=== PATIENT | male | born 1955 | race Caucasian/White ===

== ENCOUNTER → 2018-10-12 | Outpatient (CLI) | payer OTHER ==
--- NOTE | 2018-10-12 16:28 | KCIC ---
3 view right knee COMPARISON: None HISTORY: Knee pain FINDINGS: Prominent joint space narrowing of the medial compartment. Advanced patellofemoral arthropathy. There appears to be a small joint effusion. No acute fracture or dislocation. IMPRESSION: Right knee arthropathy with no acute fracture or dislocation. Probable small joint effusion Electronically signed by: Tyshawn Roger MD (10/12/2018 4:25 PM) [facility] [place]
== END | disposition home or self-care (01) ==
LOC: KCIC 08:55
PROVIDERS: ATTEND Nurse Practitioner Family
DX: M12.861 Other specific arthropathies, not elsewhere classified, right knee (principal)
CPT/HCPCS: 73562

== ENCOUNTER → 2019-03-11 | Outpatient (CLI) | payer OTHER ==
--- NOTE | 2019-03-11 17:49 | KCIC ---
CT ABDOMEN PELVIS WO CONTRAST Indication: Right groin pain. Right lower quadrant pain. Feels a lump. Exposure: One or more of the following individualized dose reduction techniques were utilized for this examination: 1. Automated exposure control 2. Adjustment of the mA and/or kV according to patient size 3. Use of iterative reconstruction technique. Comparison: None are available. Technique: No intravenous contrast given. Oral contrast was given. Findings: Evaluation of solid viscera, bowel and vasculature is compromised by the noncontrast technique. Lung bases are clear. Liver and spleen appear unremarkable. Pancreas appears unremarkable. No evidence of adrenal mass. Numerous tiny nonobstructive calculi identified in both kidneys. No evidence of hydronephrosis. No calcified gallstone. Aorta is nonaneurysmal, with mild calcifications. No significant lymph node enlargement. Small hiatal hernia. Apparent mild wall thickening may be due to lack of distention. No significant small bowel distention. Colonic diverticulosis without evidence of acute colitis. [id number] retained stool in the colon. A structure which probably represents normal appendix is seen in the right lower quadrant. No inflammatory type changes or fluid is seen in the expected appendiceal location or right lower quadrant. Density along the wall of the cecum and ascending colon is probably due to stool, oral contrast has not reached the colon at the time the scan. Urinary bladder appears unremarkable. No evidence of pelvic mass. Degenerative spondylosis. Mild right convexity lumbar scoliosis. Fat-containing inguinal hernias bilaterally, left greater than right. IMPRESSION: 1. Multiple tiny nonobstructive renal calculi bilaterally. 2. Density along the wall of the cecum and ascending colon is probably due to peripheral stool. Colonoscopy could be of benefit if not recently performed, in the unlikely event of a cecal or colonic mass. 3. No definite evidence of acute appendicitis. 4. Small fat-containing inguinal hernias bilaterally, left slightly larger than right. 5. Small hiatal hernia with wall thickening. Wall thickening may just be due to lack of distention, but consider upper endoscopy if the patient is symptomatic. Electronically signed by: Rafi Herrera MD (03/11/2019 5:46 PM) [facility]
== END | disposition home or self-care (01) ==
LOC: KCIC CT 09:28
PROVIDERS: ATTEND Nurse Practitioner Family
DX: K40.20 Bilateral inguinal hernia, without obstruction or gangrene, not specified as recurrent (principal); K44.9 Diaphragmatic hernia without obstruction or gangrene; N20.0 Calculus of kidney; K57.30 Diverticulosis of large intestine without perforation or abscess without bleeding; M41.86 Other forms of scoliosis, lumbar region
CPT/HCPCS: 74176

== ENCOUNTER → 2020-03-16 | Outpatient (CLI) | payer OTHER ==
--- NOTE | 2020-03-16 12:56 | RAD ---
EXAM: Carotid Doppler sonogram. HISTORY: Atherosclerosis. Speech disturbance. Strokelike symptoms. TECHNIQUE: Bee scale and color Doppler sonographic evaluation of the neck with spectral waveform rommel lysis was performed and static images are submitted for review. FINDINGS: The peak systolic velocity within the right common carotid artery is 115 cm/sec. The peak s ystolic velocity within the right internal carotid artery is 82 cm/sec and the end diastolic velocity within the right internal carotid artery is 24 cm/sec. The right ICA/CCA ratio is 0.90. The peak systolic velocity within the left common carotid artery is 136 cm/sec. The peak systolic kale ocity within the left internal carotid artery is 60 cm/sec and the end diastolic velocity within the left internal carotid artery is 20 cm/sec. The left ICA/CCA ratio is 0.58. There is normal antegrade flow within both vertebral arteries. IMPRESSION: No Doppler evidence of greater than 50 percent stenosis involving the internal carotid ar teries. PQRS Compliance Statement - Stenosis calculations for CT, MR and conventional angiography are based u feliz measurement of the distal ICA diameter in accordance with the NASCET methodology. Stenosis calcu lations for carotid ultrasound studies are derived from validated velocity criteria which are known t o correlate with the NASCET methodology. Electronically signed by: Kiarra Hua MD (03/16/2020 12:53 PM) [id number]
== END ==
LOC: US 12:06
PROVIDERS: ATTEND Nurse Practitioner Family
DX: I65.23 Occlusion and stenosis of bilateral carotid arteries (principal); R47.9 Unspecified speech disturbances
CPT/HCPCS: 93880

== ENCOUNTER → 2021-06-15 | Outpatient (CLI) | payer OTHER ==
[2021-03-18 13:23] VITALS: BP 139/75
[~2021-06-15] MED LIST: ASPI81TA59 PO; LOSA50TA15 PO; METF-658 PO; ROSU10TA26 PO; SERT-267 PO
--- NOTE | 2021-06-15 09:53 | KCIC ---
EXAM: Bilateral knees, 3 views. HISTORY: Pain. COMPARISON: 10/12/2018 FINDINGS: Right knee: 3 views of the right knee are obtained. There is severe medial compartment joint space na rrowing, subchondral sclerosis and spurring. There is moderate right patellofemoral compartment joint space narrowing and spurring and mild to moderate lateral compartment spurring. There is slight genu varus. There is a moderate to large joint effusion. There is a tiny chronic fragmented enthesophyte loose body superior to the patella. Left knee: 3 views of the left knee are obtained. There is moderate to severe medial compartment join t space narrowing with subchondral sclerosis and spurring. There is moderate patellofemoral and later al compartment spurring. There is left genu varus. There is a moderate to large joint effusion. IMPRESSION: 1. Moderate to severe right greater than left medial compartment predominant tricompartmental osteoar thritis of both knees with left greater than right genu varus and moderate to large joint effusions. 2. No acute osseous finding. Electronically signed by: Kiarra Hua MD (06/15/2021 9:51 AM) [id number]
== END ==
LOC: KCIC 09:30
PROVIDERS: ATTEND Nurse Practitioner Family
DX: M17.0 Bilateral primary osteoarthritis of knee (principal); M25.461 Effusion, right knee; M25.462 Effusion, left knee; M76.892 Other specified enthesopathies of left lower limb, excluding foot; M76.891 Other specified enthesopathies of right lower limb, excluding foot; M21.162 Varus deformity, not elsewhere classified, left knee; M21.161 Varus deformity, not elsewhere classified, right knee
CPT/HCPCS: 73562-50